=== PATIENT | female | born 1940 | race Caucasian/White ===

== ENCOUNTER 2017-02-25 16:52 | Emergency (ER) | payer MEDICARE, OTHER ==
[~2017-02-25] VITALS: Ht 170.2 cm; Wt 78.0 kg
[~2017-02-25 16:52] MED LIST: AMLO10 PO; ASPI81TA82 PO; CALC600T55; CENTTAB9 PO; CLEO300C2 PO; DOXA1 PO; LANTUS2P SQ; LISI20 PO; SYSTSOL OP; TIMO0.5S6 EACH EYE; XALA0.00 EACH EYE; [UNRECOGNIZED DRUG - OTHER]
[2017-02-25 16:54] VITALS: BP 189/85; PULSE 72; RESP 20; TEMP 98.1; O2SAT 97
--- NOTE | 2017-02-25 17:33 | PD ---
Physical Exam Time Seen by Provider: 17:30 Narrative 76yo F c/o redness and swelling she noticed today. Says she is susceptible to cellulitis and took 4 pills od Keflex today with no improvement in symptoms. Denies fever, vomiting. Patient seen in triage. VS reviewed. Awaiting bed placement. Data Data Last Documented VS Vital Signs Date Time Temp Pulse Resp B/P Pulse Ox O2 Delivery O2 Flow Rate FiO2 02/25/17 16:54 98.1 72 20 189/85 97 Room Air [facility] Supervised Visit with LETICIA: Aye Sierra Feb 25, 2017 17:33
[2017-02-25] MEDS ORDERED: TIMO0.5S30 EACH EYE (20:39)
[2017-02-25] MEDS ORDERED: CALC600T10 PO (20:39)
[2017-02-25] MEDS ORDERED: SYSTSOL EACH EYE (20:39)
[2017-02-25] MEDS ORDERED: LANTUS2P SQ (20:39)
[2017-02-25] MEDS ORDERED: ASPI-110 PO (20:39)
[2017-02-25] MEDS ORDERED: THERTAB17 PO (20:39)
[2017-02-25] MEDS ORDERED: LATA0.002 EACH EYE (20:41)
--- NOTE | 2017-02-25 20:45 | PD ---
HPI Chief Complaint: Skin Problem Time Seen by Provider: 20:23 Travel History International Travel<30 days: No Contact w/Intl Traveler<30days: No Traveled to known affect area: No History of Present Illness HPI 76yo F with PMH of DM, breast CA and cancer free for 16 years presents to the ED with c/o redness in right arm. States she gets cellulitis often and it started in her right forearm and now has spread to right humerus today. Pt also complained of right shoulder for a few days. Denies any trauma but pain is worst with movement. Denies any fever, chest pain, sob, n/v, abdominal pain , focal weakness or numbness. PFSH Past Medical History Hx Anticoagulant Therapy: No Cancer: Yes (BREAST) Cardiovascular Problems: No High Cholesterol: Yes Chemotherapy: Yes Cerebrovascular Accident: No Diabetes: Yes Patient Takes Glucophage: No Diminished Hearing: No Endocrine: Yes Glaucoma: Yes Genitourinary: No Hypertension: Yes Immune Disorder: No Implanted Vascular Access Dvce: Yes Musculoskeletal: No Neurologic: No Psychiatric: No Reproductive: No Respiratory: No Integumentary: Yes (hx of celluitis ) Radiation Therapy: Yes Menopausal: Yes Past Surgical History Abdominal Surgery: No Body Medical Devices: bilateral knee replacement Cardiac Surgery: Yes Ear Surgery: No Endocrine Surgery: Yes (Right sided lymphectomy,) Eye Surgery: Yes (bilat cataract surgery) Genitourinary Surgery: No Gynecologic Surgery: No Joint Replacement: Yes (bilateral knee replacements) Oral Surgery: No Thoracic Surgery: No Other Surgery: Yes (RT BREAST CANCER LUMPECTOMY WITH LYMPH NODES 2001) Social History Alcohol Use: No Tobacco Use: No Substance Use: No Allergies-Medications (Allergen,Severity, Reaction): Coded Allergies: No Known Allergies (Verified , 02/25/17) Reported Meds & Prescriptions Reported Meds & Active Scripts Active Reported Latanoprost Opth Drops (Latanoprost) 0.005% Drops 1 Drop EACH EYE HS Refrigerate until opened. Timolol Opth Drops 0.5 % Soln 1 Drop EACH EYE DAILY Systane Opth Drops (Polyethylene Glycol-Propylene Glycol Opth Drp) 0.4-0.3% Soln 1 Drop EACH EYE QID PRN Thera-M (Multiple Vitamins W/ Minerals) 1 Tab 1 Tab PO DAILY Lantus Inj (Insulin Glargine) 1,000 Unit/10 Ml Vial 20 Units SQ HS Calcium + D3 (Calcium Carbonate-Cholecalciferol) 600-200 Mg-Unit Tab 2 Tab PO BID Aspirin 81 (Aspirin) 81 Mg Tabdr 81 Mg PO HS Review of Systems Except as stated in HPI: all other systems reviewed are Neg Physical Exam Narrative GENERAL: 76yo F not in distress. SKIN: Focused skin assessment warm/dry. HEAD: Atraumatic. Normocephalic. CARDIOVASCULAR: Regular rate and rhythm. No murmur appreciated. RESPIRATORY: No accessory muscle use. Clear to auscultation. Breath sounds equal bilaterally. GASTROINTESTINAL: Abdomen soft, non-tender, nondistended. No rebound tenderness or guarding. MUSCULOSKELETAL: RUE: +Erythema in right forearm up to humerus. Soft compartments. Radial pulse intact. FROM right elbow and shoulder NEUROLOGICAL: Awake and alert. No obvious cranial nerve deficits. Motor grossly within normal limits. Normal speech. PSYCHIATRIC: Appropriate mood and affect; insight and judgment normal. Data Data Last Documented VS Vital Signs Date Time Temp Pulse Resp B/P Pulse Ox O2 Delivery O2 Flow Rate FiO2 02/25/17 16:54 98.1 72 20 189/85 97 Room Air Orders Electrocardiogram (02/25/17 ) Shoulder, Limited(2vws) (02/25/17 ) Complete Blood Count With Diff (02/25/17 20:55) Hepatic Functional Panel (02/25/17 20:55) Blood Culture (02/25/17 20:55) Asp:No Reaction To [place]/Vanc (Asp Crit (02/25/17 21:00) Asp: Does Not Meet Inpt Admit (Asp Crit: (02/25/17 21:00) Asp: Iv Antibiotics Admit Only (Asp Crit (02/25/17 21:00) Asp: Location Of [place] Admin (Asp Crit: (02/25/17 21:00) [facility] [place] (02/25/17 21:00) Dalbavancin Inj (Dalvance Inj) (02/25/17 20:55) Basic Metabolic Panel (Bmp) (02/25/17 20:55) Clindamycin Inj (Cleocin Inj) (02/25/17 22:15) Labs Laboratory Tests Test 02/25/17 02/25/17 19:50 20:50 White Blood Count 9.9 TH/MM3 Red Blood Count 4.48 MIL/MM3 Hemoglobin 12.4 GM/DL Hematocrit 36.7 % Mean Corpuscular Volume 82.0 FL Mean Corpuscular Hemoglobin 27.6 PG Mean Corpuscular Hemoglobin 33.7 % Concent Red Cell Distribution Width 14.2 % Platelet Count 347 TH/MM3 Mean Platelet Volume 8.6 FL Neutrophils (%) (Auto) 61.2 % Lymphocytes (%) (Auto) 26.4 % Monocytes (%) (Auto) 7.9 % Eosinophils (%) (Auto) 3.2 % Basophils (%) (Auto) 1.3 % Neutrophils # (Auto) 6.1 TH/MM3 Lymphocytes # (Auto) 2.6 TH/MM3 Monocytes # (Auto) 0.8 TH/MM3 Eosinophils # (Auto) 0.3 TH/MM3 Basophils # (Auto) 0.1 TH/MM3 CBC Comment DIFF FINAL Differential Comment Sodium Level 135 MEQ/L Potassium Level 4.3 MEQ/L Chloride Level 103 MEQ/L Carbon Dioxide Level 22.2 MEQ/L Anion Gap 10 MEQ/L Blood Urea Nitrogen 10 MG/DL Creatinine 0.72 MG/DL Estimat Glomerular Filtration 78 ML/MIN Rate Random Glucose 136 MG/DL Calcium Level 9.3 MG/DL Total Bilirubin 0.4 MG/DL Direct Bilirubin LESS THAN 0.1 MG/DL Indirect Bilirubin 0.3 MG/DL Aspartate Amino Transf 20 U/L (AST/SGOT) Alanine Aminotransferase 15 U/L (ALT/SGPT) Alkaline Phosphatase 75 U/L Total Protein 7.6 GM/DL Albumin 3.7 GM/DL [facility] Medical Decision Making Medical Screen Exam Complete: Yes Emergency Medical Condition: Yes Interpretation(s) EKG: NSR 64bpm. 1st AV block. No ST segment elevation or depression. Differential Diagnosis Cellulitis Narrative Course 76yo F with right arm cellulitis for 1 day. States she gets cellulitis often. Pt is nontoxic appearing and has no fever or systemic symptoms. Labs reviewed, no leukocytosis. BMP and LFT unremarkable. Xray right shoulder showed mild degenerative change involving the AC joint. Mild osteopenia. Pt given acetaminophen and clindamycin 600mg IV. Pt has good follow up with PMD Dr. Douglas and instructed pt to follow up with PMD tomorrow and to return to the ED if symptoms worsen. Diagnosis Primary Impression: Cellulitis Qualified Code: L03.113 - Cellulitis of right upper extremity Patient Instructions: General Instructions Departure Forms: Tests/Procedures Additional Instructions: Please follow up with your PMD tomorrow. Return to the ED if symptoms worsen. Med/Other Pt SpecificInfo: Prescription(s) given Scripts Clindamycin 300 Mg Nsr290 Mg PO Q6H #10 CAP Ref 0 Prov:Dana Sheth DO 02/25/17 Disposition: 01 DISCHARGE HOME Condition: Stable Dana Sheth DO Feb 25, 2017 20:45
[2017-02-25] MEDS ORDERED: DALBAVANCIN INJ 1,500 MG in DEXTROSE 5% IN WATE 500 ML INJ 500 ML IV STA ×2 (20:55)
[2017-02-25] MEDS ORDERED: ASP: No known hypersensitivity to Vanco, Telavancin, Dalbavancin OTHER ONE (21:00)
[2017-02-25] MEDS ORDERED: MISCELLANEOUS PHARMACY INFORMATION XX ONE (21:00)
[2017-02-25] MEDS ORDERED: ASP: Only reason for admit - IV antibiotics OTHER ONE (21:00)
[2017-02-25] MEDS ORDERED: ASP: Does not meet inpatient admission criteria OTHER ONE (21:00)
[2017-02-25] MEDS ORDERED: ASP: Location of Dalbavancin administration OTHER ONE (21:00)
--- NOTE | 2017-02-25 21:29 | RADRPT ---
EXAM DATE/TIME: 02/25/2017 21:05 [facility] COMPARISON: No previous studies available for comparison. INDICATIONS : Right shoulder pain, denies injury MEDICAL HISTORY : Arthritis. SURGICAL HISTORY : None. ENCOUNTER: Initial ACUITY: 4 - 6 months PAIN SCORE: 4/10 LOCATION: Right Shoulder FINDINGS: Two view examination of the right shoulder demonstrates no evidence of fracture or dislocation. The glenohumeral is maintained. Mild degenerative changes noted involving the acromioclavicular joint. T here is mild osteopenia. CONCLUSION: 1. Mild degenerative change involving the acromioclavicular joint. 2. Mild osteopenia. Dionicio Payton MD on February 25, 2017 at 21:27 Board Certified Radiologist. This report was verified electronically.
[2017-02-25 21:41] LABS: AUTOMATED NEUTROPHIL # 6.1 TH/MM3 (1.8-7.7); BASOPHIL # 0.1 TH/MM3 (0-0.2); BASOPHIL % 1.3 % (0.0-2.0); EOSINOPHIL # 0.3 TH/MM3 (0-0.4); EOSINOPHIL % 3.2 % (0.0-4.0); HEMATOCRIT 36.7 % (35.0-46.0); HEMO FLAGS DIFF FINAL; LYMPH % 26.4 % (9.0-44.0); LYMPHOCYTE # 2.6 TH/MM3 (1.0-4.8); MEAN CORPUSCULAR HEMOGLOBIN 27.6 PG (27.0-34.0); MEAN CORPUSCULAR HGB CONC 33.7 % (32.0-36.0); MONO % 7.9 % (0.0-8.0); NEUT % 61.2 % (16.0-70.0); PLATELET COUNT 347 TH/MM3 (150-450); RED BLOOD COUNT 4.48 MIL/MM3 (4.00-5.30); RED CELL DISTRIBUTION WIDTH 14.2 % (11.6-17.2); WHITE BLOOD COUNT 9.9 TH/MM3 (4.0-11.0)
[2017-02-25 21:41] LABS: ALT (GPT) 15 U/L (10-53)
[2017-02-25 21:43] LABS: ALKALINE PHOSPHATASE 75 U/L (45-117); TOTAL BILIRUBIN ADULT 0.4 MG/DL (0.2-1.0)
[2017-02-25 21:45] LABS: ANION GAP 10 MEQ/L (5-15); AST (GOT) 20 U/L (15-37); BICARBONATE 22.2 MEQ/L (21.0-32.0); BLOOD UREA NITROGEN 10 MG/DL (7-18); CHLORIDE 103 MEQ/L (98-107); GLOMERULAR FILTRATION RATE 78 ML/MIN (>89); INDIRECT BILIRUBIN 0.3 MG/DL (0.0-0.8); SODIUM (NA) 135 MEQ/L (136-145)
[2017-02-25 21:49] LABS: POTASSIUM 4.3 MEQ/L (3.5-5.1)
[2017-02-25] MEDS ORDERED: CLIN1CAP6 PO (22:12)
[2017-02-25] MEDS ORDERED: CLINDAMYCIN INJ 600 MG in SODIUM CHLORIDE 0.9% INJ 100 ML IV ONE (22:15)
[2017-02-25] MEDS ORDERED: ACETAMINOPHEN 500 MG CPLT PO ONE (22:15)
[2017-02-25 23:18] VITALS: BP 187/79
--- NOTE | 2017-02-26 17:22 | EKG ---
Date Performed: 02/25/2017 Time Performed: 21:12:57 PTAGE: 76 years EKG: Sinus rhythm WITH FIRST DEGREE AV BLOCK ABNORMAL ECG PREVIOUS TRACING : 10/23/2015 05.08 Compared to prior tracing no significant change DOCTOR: Carl Valdez Interpretating Date/Time 02/26/2017 17:20:38
== END 2017-02-25 23:30 | disposition home or self-care (01) ==
LOC: NEPD 16:52
DX: L03.113 Cellulitis of right upper limb (principal); I44.30 Unspecified atrioventricular block; H40.9 Unspecified glaucoma; I10 Essential (primary) hypertension; E78.00 Pure hypercholesterolemia, unspecified; E11.9 Type 2 diabetes mellitus without complications; Z79.4 Long term (current) use of insulin; Z79.82 Long term (current) use of aspirin; Z85.3 Personal history of malignant neoplasm of breast
CPT/HCPCS: 73030; 80048; 80076; 85025; 87040; 93005; 96365